=== PATIENT | male | born 1995 | race African-American/Black ===

== ENCOUNTER 2019-05-31 16:36 | Emergency (ER) | payer SELFPAY ==
[2019-05-31] MEDS ORDERED: Azithromycin 250 MG TAB ONE (17:28)
--- NOTE | 2019-05-31 17:50 | RAD ---
PA AND LATERAL VIEWS CHEST: Date: 05/31/19 HISTORY: Cough. FINDINGS: The cardiomediastinum is normal. The lungs are expanded and clear. The bony thorax is normal. IMPRESSION: Normal exam. POS: [facility]
== END 2019-05-31 17:50 | disposition short-term general hospital (02) ==
LOC: ERS 16:36
DX: J20.9 Acute bronchitis, unspecified (principal); R04.2 Hemoptysis; J45.909 Unspecified asthma, uncomplicated
CPT/HCPCS: 71046; 87804; 94640; J7620

== ENCOUNTER 2022-08-20 16:23 | Emergency (ER) | payer SELFPAY ==
[2022-08-20] MEDS ORDERED: Acetaminophen 500 MG TAB ONE (16:56)
[2022-08-20] MEDS ORDERED: Ibuprofen 800 MG TAB ONE (16:56)
== END 2022-08-20 17:11 | disposition home or self-care (01) ==
LOC: ERS 16:23
DX: J11.1 Influenza due to unidentified influenza virus with other respiratory manifestations (principal)
CPT/HCPCS: 99283

== ENCOUNTER 2025-07-03 11:37 | Emergency (ER) | payer OTHER, SELFPAY ==
[2025-07-03] MEDS ORDERED: HYDROcodone/Acetaminophen 10/325 mg Tablet ONE (12:56)
== END 2025-07-03 13:03 | disposition home or self-care (01) ==
LOC: ERS 11:37
DX: S02.2XXA Fracture of nasal bones, initial encounter for closed fracture (principal); Y04.2XXA Assault by strike against or bumped into by another person, initial encounter
CPT/HCPCS: 70450; 70486; 72125